=== PATIENT | male | born 1985 | race Caucasian/White ===

== ENCOUNTER 2019-06-29 13:43 | Emergency (ER) | payer OTHER ==
[~2019-06-29] VITALS: Ht 188 cm; Wt 72.6 kg
[~2019-06-29 13:43] MED LIST: ALBU.083IS IH; ALBU90OI INH; ALBU90OI61 INH; AMOX500 PO; AZIT250 PO; Benadryl 50 mg50 MG PO; CLAR500 PO; DIPH50 PO; LANS30EC PO; Naprosyn500 MG PO; OLAN10 PO; OMEP10ER PO; PRED10 PO; Prednisone20 MG PO; Prozac20 MG PO; QUET200 PO; QVAR7.3 G1 IH; SERT50 PO; Veetids 500500 MG PO
[2019-06-29] MEDS ORDERED: Veetids 500500 MG PO (14:14)
== END 2019-06-29 14:18 | disposition home or self-care (01) ==
LOC: ER 13:43
DX: K04.7 Periapical abscess without sinus (principal); K02.9 Dental caries, unspecified; K04.01 Reversible pulpitis; Z87.891 Personal history of nicotine dependence
CPT/HCPCS: 64400; 99282-25

== ENCOUNTER 2019-12-26 19:46 | Emergency (ER) | payer OTHER ==
[~2019-12-26] VITALS: Ht 188 cm; Wt 68.0 kg
== END 2019-12-26 21:17 | disposition home or self-care (01) ==
LOC: ER 19:46
DX: M79.631 Pain in right forearm (principal); M25.531 Pain in right wrist; J45.909 Unspecified asthma, uncomplicated; Z87.891 Personal history of nicotine dependence; W01.0XXA Fall on same level from slipping, tripping and stumbling without subsequent striking against object, initial encounter
CPT/HCPCS: 29125; 73090; 99283-25

== ENCOUNTER → 2021-10-06 | Outpatient (CLI) | payer OTHER ==
[~2021-10-06] MED LIST changes: +Mucinex600 MG PO
[2021-10-06 15:21] LABS: BASOPHILS ABSOLUTE AUTO 0.03 K/mm3 (0.00-0.23); BASOPHILS PERCENT AUTO 1 % (0-2); EOSINOPHILS ABSOLUTE AUTO 0.18 K/mm3 (0.00-0.68); EOSINOPHILS PERCENT AUTO 3 % (0-6); Hemoglobin 14.3 g/dL (13.5-17.5); IMMATURE GRAN ABSOLUTE AUTO 0.01 K/mm3 (0.00-0.10); IMMATURE GRAN PERCENT AUTO 0 % (0-1); LYMPHOCYTES ABSOLUTE AUTO 2.15 K/mm3 (0.84-5.20); LYMPHOCYTES PERCENT AUTO 37 % (21-46); MONOCYTES ABSOLUTE AUTO 0.43 K/mm3 (0.16-1.47); MONOCYTES PERCENT AUTO 8 % (4-13); Mean Corpuscular HGB 29.7 pg (26.0-34.0); Mean Corpuscular HGB Conc 34.9 g/dL (31.5-36.5); Mean Corpuscular Volume 85 fL (80-100); Mean Platelet Volume 9.7 fL (9.1-12.4); NEUTROPHILS ABSOLUTE AUTO 2.97 K/mm3 (1.96-9.15); NEUTROPHILS PERCENT AUTO 51 % (41-73); Platelet Count 315 K/mm3 (150-400); RDW Coefficient Variation 12.8 % (11.7-14.2); RDW Standard Deviation 39.9 fL (35.1-46.3); Red Blood Cell Count 4.81 M/mm3 (4.30-5.90); White Blood Cell Count 5.77 K/mm3 (4.00-11.30)
[2021-10-06 15:36] LABS: Alanine Aminotransfer (ALT/SGP 47 U/L (12-78); Albumin, Blood 4.3 g/dL (3.4-5.0); Albumin/Globulin Ratio 1.5 (0.8-1.8); Alk Phos 60 U/L (40-126); Amylase, Blood 87 U/L (25-115); Anion Gap 11 mmol/L (6-16); Aspartate Aminotrans (AST/SGOT 40 U/L (12-37); Bilirubin, Total 0.6 mg/dL (0.1-1.0); Blood Urea Nitrogen 19 mg/dL (8-24); Bun/Creatinine Ratio 20.9 (12.0-20.0); CO2, Blood 30 mmol/L (21-32); Calcium, Blood 9.2 mg/dL (8.5-10.1); Chloride, Blood 104 mmol/L (98-108); Creatinine, Blood 0.91 mg/dL (0.60-1.20); Globulin, Blood 2.8 g/dL (2.2-4.0); Glomerular Filtration Rate >60 (60-); Glucose, Blood 83 mg/dL (70-99); Potassium, Blood 3.9 mmol/L (3.5-5.5); Sodium, Blood 145 mmol/L (136-145); Total Protein, Blood 7.1 g/dL (6.4-8.2)
[2021-10-06 15:58] LABS: International Normalized Ratio 0.93; Prothrombin Time Results 9.8 Sec (9.7-11.5)
== END | disposition home or self-care (01) ==
LOC: LAB SHORT 15:15
PROVIDERS: General Practice
DX: U07.1 COVID-19 (principal); R04.2 Hemoptysis
CPT/HCPCS: 80053; 82150; 85025; 85610; 85730; 87070

== ENCOUNTER 2023-08-27 06:39 | Emergency (ER) | payer OTHER ==
[~2023-08-27] VITALS: Ht 188 cm; Wt 70.3 kg
[2023-08-27 07:53] VITALS: BP 142/87
[2023-08-27] MEDS ORDERED: CEPH500 PO (08:10)
[2023-08-27] MEDS ORDERED: SULTRIDS PO (08:10)
[2023-08-27] MEDS ORDERED: ONDA4 PO (08:11)
[2023-08-27] MEDS ORDERED: ALBU90OI INH (09:40)
== END 2023-08-27 09:49 | disposition home or self-care (01) ==
LOC: ER 06:39
DX: L03.011 Cellulitis of right finger (principal); M79.89 Other specified soft tissue disorders; J45.909 Unspecified asthma, uncomplicated; Z79.899 Other long term (current) drug therapy; Z87.891 Personal history of nicotine dependence
CPT/HCPCS: 73140; 80053; 85025; 96365; 96375; 99283-25; A9270; J0690; J1885; J7030

== ENCOUNTER 2023-08-30 13:23 | Inpatient (IN) | payer OTHER ==
[~2023-08-30] VITALS: Ht 188 cm; Wt 63.3 kg
[~2023-08-30 13:23] MED LIST changes: +CEPH500 PO; +ONDA4 PO; +SULTRIDS PO
[2023-08-30 14:11] LABS: BASOPHILS ABSOLUTE AUTO 0.04 K/mm3 (0.00-0.23); BASOPHILS PERCENT AUTO 0 % (0-2); EOSINOPHILS ABSOLUTE AUTO 0.11 K/mm3 (0.00-0.68); EOSINOPHILS PERCENT AUTO 1 % (0-6); Hematocrit 40.4 % (37.0-53.0); Hemoglobin 14.1 g/dL (13.5-17.5); IMMATURE GRAN PERCENT AUTO 1 % (0-1); LYMPHOCYTES ABSOLUTE AUTO 1.96 K/mm3 (0.84-5.20); LYMPHOCYTES PERCENT AUTO 16 % (21-46); MONOCYTES ABSOLUTE AUTO 1.04 K/mm3 (0.16-1.47); MONOCYTES PERCENT AUTO 8 % (4-13); Mean Corpuscular HGB 29.6 pg (26.0-34.0); Mean Corpuscular HGB Conc 34.9 g/dL (31.5-36.5); Mean Corpuscular Volume 85 fL (80-100); Mean Platelet Volume 9.6 fL (9.1-12.4); NEUTROPHILS ABSOLUTE AUTO 9.19 K/mm3 (1.96-9.15); NEUTROPHILS PERCENT AUTO 74 % (41-73); Platelet Count 365 K/mm3 (150-400); RDW Coefficient Variation 13.3 % (11.7-14.2); RDW Standard Deviation 41.8 fL (35.1-46.3); Red Blood Cell Count 4.76 M/mm3 (4.30-5.90); White Blood Cell Count 12.44 K/mm3 (4.00-11.30)
[2023-08-30 16:10] LABS: Albumin, Blood 3.1 g/dL (3.4-5.0); Albumin/Globulin Ratio 0.7 (0.8-1.8); Bilirubin, Total 0.1 mg/dL (0.1-1.0); Bun/Creatinine Ratio 12.8 (12.0-20.0); Calcium, Blood 9.1 mg/dL (8.5-10.1); Creatinine, Blood 0.86 mg/dL (0.60-1.20); Globulin, Blood 4.5 g/dL (2.2-4.0); Potassium, Blood 4.3 mmol/L (3.5-5.5); Total Protein, Blood 7.6 g/dL (6.4-8.2)
[2023-08-30 22:11] VITALS: BP 127/76
--- NOTE | 2023-08-30 22:28 | NUR ---
ADMIT NOTE LATE ENTRY PT TRANSPORTED BY WHEELCHAIR TO UNIT, AMBULATED FROM WHEELCHAIR TO BED UNASSISTED. PT EDUCATED ON FIRE SAFETY AND PREVENTION. ORIENTED TO CALL LIGHT AND ROOM. BED IN LOWEST POSITION WITH CALL LIGHT WITHIN REACH. PT KNOWS HOW TO CALL FOR NEEDS. RECEIVED REPORT FROM ED RN KAMERON. WILL CONTINUE TO MONITOR.
--- NOTE | 2023-08-31 03:55 | NUR ---
SHIFT SUMMARY PT A&O X4, CALM AND COOPERATIVE WITH CARE. PT IN SEVERE PAIN AFTER ARRIVAL TO UNIT. DR WALDRON AT BEDSIDE AND PLACED ORDERS. MEDICATED FOR PAIN PER EMAR. ABX GIVEN. NS INFUISING @ 125 ML/HR. PT INDEPENDENT IN ROOM. PT KEPT NPO AT MIDNIGHT AWAITING ORTHOPEDIC EVALUATION. BED KEPT IN LOWEST POSITION WITH CALL LIGHT WITHIN REACH. CALLS APPROPRAITELY FOR NEEDS.
[2023-08-31 04:55] VITALS: BP 118/67
[2023-08-31 05:07] LABS: BASOPHILS ABSOLUTE AUTO 0.06 K/mm3 (0.00-0.23); BASOPHILS PERCENT AUTO 1 % (0-2); EOSINOPHILS PERCENT AUTO 2 % (0-6); Hematocrit 38.3 % (37.0-53.0); Hemoglobin 12.9 g/dL (13.5-17.5); IMMATURE GRAN ABSOLUTE AUTO 0.06 K/mm3 (0.00-0.10); IMMATURE GRAN PERCENT AUTO 1 % (0-1); LYMPHOCYTES ABSOLUTE AUTO 2.03 K/mm3 (0.84-5.20); LYMPHOCYTES PERCENT AUTO 16 % (21-46); MONOCYTES ABSOLUTE AUTO 1.15 K/mm3 (0.16-1.47); MONOCYTES PERCENT AUTO 9 % (4-13); Mean Corpuscular HGB 28.9 pg (26.0-34.0); Mean Corpuscular HGB Conc 33.7 g/dL (31.5-36.5); Mean Corpuscular Volume 86 fL (80-100); Mean Platelet Volume 9.6 fL (9.1-12.4); NEUTROPHILS ABSOLUTE AUTO 9.02 K/mm3 (1.96-9.15); NEUTROPHILS PERCENT AUTO 71 % (41-73); Platelet Count 345 K/mm3 (150-400); RDW Coefficient Variation 13.3 % (11.7-14.2); Red Blood Cell Count 4.47 M/mm3 (4.30-5.90); White Blood Cell Count 12.62 K/mm3 (4.00-11.30)
[2023-08-31 07:53] VITALS: BP 131/81
[2023-08-31 16:47] VITALS: BP 130/76
[2023-08-31 19:26] VITALS: BP 133/85
--- NOTE | 2023-08-31 19:46 | NUR ---
SHIFT SUMMARY PATIENT WITH PAIN THROUGHOUT SHIFT, MEDICATED PER EMAR. REDNESS AND SWELLING MARKED AT BEGINNING OF SHIFT, PATIENT REPORTS SOME INCREASE IN SWELLING TOWARD END OF SHIFT BUT NO ADDITIONAL REDNESS NOTED. DENIES NUMBNESS OR TINGLING. PATIENT UP TO BATHROOM AD LOGAN. BED IN LOW POSITION. CALL LIGHT IN REACH. PATIENT CALLS APPROPRIATELY BUT DOES NOT CALL FOR PAIN MEDS. HE EXPRESSES CONCERN OF TAKING SO MUCH PAIN MEDS, STATES THIS IS NOT NORMAL FOR HIM.
[2023-09-01] VITALS (15 sets, daily range): BP systolic 120–160; BP diastolic 77–94
[2023-09-01 05:04] LABS: BASOPHILS ABSOLUTE AUTO 0.03 K/mm3 (0.00-0.23); BASOPHILS PERCENT AUTO 0 % (0-2); EOSINOPHILS ABSOLUTE AUTO 0.38 K/mm3 (0.00-0.68); EOSINOPHILS PERCENT AUTO 6 % (0-6); Hematocrit 35.9 % (37.0-53.0); Hemoglobin 12.3 g/dL (13.5-17.5); IMMATURE GRAN ABSOLUTE AUTO 0.04 K/mm3 (0.00-0.10); IMMATURE GRAN PERCENT AUTO 1 % (0-1); LYMPHOCYTES ABSOLUTE AUTO 1.97 K/mm3 (0.84-5.20); LYMPHOCYTES PERCENT AUTO 29 % (21-46); MONOCYTES ABSOLUTE AUTO 0.72 K/mm3 (0.16-1.47); MONOCYTES PERCENT AUTO 11 % (4-13); Mean Corpuscular HGB 29.3 pg (26.0-34.0); Mean Corpuscular HGB Conc 34.3 g/dL (31.5-36.5); Mean Corpuscular Volume 86 fL (80-100); Mean Platelet Volume 9.4 fL (9.1-12.4); NEUTROPHILS ABSOLUTE AUTO 3.61 K/mm3 (1.96-9.15); NEUTROPHILS PERCENT AUTO 54 % (41-73); Platelet Count 324 K/mm3 (150-400); RDW Coefficient Variation 13.3 % (11.7-14.2); RDW Standard Deviation 41.5 fL (35.1-46.3); White Blood Cell Count 6.75 K/mm3 (4.00-11.30)
[2023-09-01 05:54] LABS: Albumin, Blood 2.6 g/dL (3.4-5.0); Albumin/Globulin Ratio 0.7 (0.8-1.8); Bilirubin, Total 0.2 mg/dL (0.1-1.0); Bun/Creatinine Ratio 13.1 (12.0-20.0); Calcium, Blood 8.4 mg/dL (8.5-10.1); Globulin, Blood 3.9 g/dL (2.2-4.0); Potassium, Blood 4.5 mmol/L (3.5-5.5); Total Protein, Blood 6.5 g/dL (6.4-8.2)
--- NOTE | 2023-09-01 07:55 | NUR ---
END OF SHIFT SUMMARY NO EVENTS OVERNIGHT. PT CALM AND COOPERATIVE WITH CARE PROVIDED. PT A&O x4, VSS, AFEBRILE. PT MANAGED WITH PRN MEDICATION TO KEEP PT COMFORTABLE. R HAND ELEVATED ON PILLOW. SMALL AMOUNT OF SEROSANGUINOUS FLUID NOTED TO PEDRO PAD. DISPOSABLE PEDRO PAD CHANGED FREQUENTLY TO KEEP R HAND CLEAN AND DRY. PT SLEPT ON AND OFF THROUGHOUT THE SHIFT. PT SCHEDULED TO HAVE I&D THIS AFTERNOON AT 1500. PT COMPLIANT WITH NPO ORDER. PT ABLE TO MAKE NEEDS KNOWN. CALL LIGHT WITHIN REACH, WCTM.
--- NOTE | 2023-09-01 15:22 | NUR ---
Patient up to Ambulate independently. Gait steady. History, Chart, Medications and Allergies reviewed before start of procedure.Lungs clear T/O to Auscultation. Patient confirms NPO status and agrees with scheduled surgery. Pre-Op teaching done. Pt verbalizes understanding.
--- NOTE | 2023-09-01 19:31 | NUR ---
SHIFT SUMMARY PT A&O4 AND PLEASANT. PT C/O PAIN T/O DAY IN RIGHT HAND. ELEVATED ON PILLOWS AND MEDICATED PER EMAR. PT WENT FOR I&D AND WASHOUT AT ABOUT 1500. PT ARRIVED BACK ON THE MEDICAL FLOOR AT ABOUT 1730. PT C/O OF SEVERE PAIN WITH LITTLE RELIEF FROM MEDICATION IN PACU. PT AGAIN MEDICATED PER EMAR ONCE BACK ON MEDICAL FLOOR. PT ABLE TO TOLERATE SOME ICE CREAM. VSS. FAMILY AT BEDSIDE. BED IN LOWEST POSITION AND CALL LIGHT IN REACH.
[2023-09-02 00:29] VITALS: BP 125/85
[2023-09-02 04:31] VITALS: BP 137/88
[2023-09-02 05:00] LABS: BASOPHILS ABSOLUTE AUTO 0.03 K/mm3 (0.00-0.23); BASOPHILS PERCENT AUTO 0 % (0-2); EOSINOPHILS ABSOLUTE AUTO 0.42 K/mm3 (0.00-0.68); EOSINOPHILS PERCENT AUTO 6 % (0-6); Hematocrit 33.3 % (37.0-53.0); Hemoglobin 11.2 g/dL (13.5-17.5); IMMATURE GRAN ABSOLUTE AUTO 0.02 K/mm3 (0.00-0.10); IMMATURE GRAN PERCENT AUTO 0 % (0-1); LYMPHOCYTES ABSOLUTE AUTO 2.17 K/mm3 (0.84-5.20); LYMPHOCYTES PERCENT AUTO 32 % (21-46); MONOCYTES ABSOLUTE AUTO 0.51 K/mm3 (0.16-1.47); MONOCYTES PERCENT AUTO 8 % (4-13); Mean Corpuscular HGB 28.9 pg (26.0-34.0); Mean Corpuscular HGB Conc 33.6 g/dL (31.5-36.5); Mean Corpuscular Volume 86 fL (80-100); Mean Platelet Volume 9.5 fL (9.1-12.4); NEUTROPHILS ABSOLUTE AUTO 3.63 K/mm3 (1.96-9.15); NEUTROPHILS PERCENT AUTO 54 % (41-73); Platelet Count 337 K/mm3 (150-400); RDW Coefficient Variation 13.1 % (11.7-14.2); RDW Standard Deviation 41.1 fL (35.1-46.3); Red Blood Cell Count 3.87 M/mm3 (4.30-5.90); White Blood Cell Count 6.78 K/mm3 (4.00-11.30)
[2023-09-02 05:35] LABS: Albumin, Blood 2.4 g/dL (3.4-5.0); Albumin/Globulin Ratio 0.7 (0.8-1.8); Bilirubin, Total 0.1 mg/dL (0.1-1.0); Bun/Creatinine Ratio 12.1 (12.0-20.0); Calcium, Blood 7.9 mg/dL (8.5-10.1); Creatinine, Blood 0.91 mg/dL (0.60-1.20); Globulin, Blood 3.6 g/dL (2.2-4.0); Potassium, Blood 4.2 mmol/L (3.5-5.5)
--- NOTE | 2023-09-02 07:46 | NUR ---
SHIFT SUMMARY. I&D TO RIGHT HAND ON 09/01. PAIN REGIMEN PER EMAR. A/OX4. ROOM AIR. SCD'S BILAT LE. INFUSION NS @ 125 ML/HR. CICULATION DISTAL TO SURGERY SITE INTACT. CONTINENET B/B. ABLE TO MAKE NEEDS KNOWN. CALL LIGHT IN REACH. BED LOCKED IN LOW POSITION. PT HESITANT TO PRESS CALL LIGHT, NOTICED PT WILL NOT ALWAYS CALL FOR PAIN CONTROL UNTIL HIS PAIN IS 10/10. TRIED TO STAY ON TOP OF PAIN REGIMEN BY ASKING PATIENT IF HE WOULD LIKE HIS PAIN MEDICINE BEFORE IT GOT TO THAT 10/10 POINT.
[2023-09-02 07:56] VITALS: BP 127/84
[2023-09-02 16:16] VITALS: BP 136/83
--- NOTE | 2023-09-02 17:09 | NUR ---
SHIFT SUMMARY MR KU HAS BEEN UP TO THE CHAIR FOR MUCH OF THE SHIFT. KEEPING R HAND ELEVATEED ON SEVERAL PILLOWS. GOOD C.S.M. TO FINGERS OF RIGHT HAND. PAIN CONTROLLED WITH MEDICATIONS. GOOD PO INTAKE. IVF DISCONTINUED. AMBULATING WITH STEADY GAIT. HIS FAMILY VISITED HIM TODAY. BED LOW, CALL LIGHT IN REACH.
[2023-09-02 19:35] VITALS: BP 139/84
[2023-09-03 04:20] VITALS: BP 122/86
--- NOTE | 2023-09-03 05:30 | NUR ---
END OF SHIFT SUMMARY PT A&O x4, VSS, AFEBRILE. PT POLITE AND COOPERATIVE WITH CARE PROVIDED. PT UP AD LOGAN IN ROOM, INDEPENDENT WITH ADL's. PT C/O PAIN TO R HAND. PAIN MANAGED WITH PRN OXY AND APAP WHICH WAS EFFECTIVE. PT SLEPT FOR THE MAJORITY OF THE SHIFT OVERNIGHT. DRESSING TO R HAND WAS CHANGED YESTERDAY. PT ENCOURAGED TO MAKE NEEDS KNOWN. CALL LIGHT WITHIN REACH, WCTM.
[2023-09-03 07:28] VITALS: BP 130/77
[2023-09-03 16:00] VITALS: BP 136/85
--- NOTE | 2023-09-03 17:12 | NUR ---
DISCHARGE A&OX4, COOPERATIVE WITH CARE, PLEASANT. MEDICATED FOR PAIN TO R HAND WOUND T/O SHIFT. DENIED CP/PRESSURE, SOB, DIZZINESS, OR HEADACHE. NO OTHER COMPLAINTS. NO ACUTE EVENTS THIS SHIFT. IV REMOVED. DISCHARGE PACKET REVIEWED WITH PATIENT. EDUCATED PATIENT ABOUT WOUND CARE AND NUTRITION. PATIENT AND VERBALIZED UNDERSTANDING. PATIENT DISCHARGED AT 1700.
[2023-09-04] MEDS ORDERED: OXYC5 PO (15:18)
== END 2023-09-03 17:14 | disposition home or self-care (01) | DRG 872 ==
LOC: ER 13:23 → MEDS 13:24
PROVIDERS: Physician Assistant; Student in an Organized Health Care Education/Training Program; ADMIT Student in an Organized Health Care Education/Training Program
PROC: 0J9J0ZX Drainage of Right Hand Subcutaneous Tissue and Fascia, Open Approach, Diagnostic (ICD-10-PCS; 2023-09-01)
PROC: 3E03329 Introduction of Other Anti-infective into Peripheral Vein, Percutaneous Approach (ICD-10-PCS; principal; 2023-09-02)
DX: A41.02 Sepsis due to Methicillin resistant Staphylococcus aureus (principal); L02.511 Cutaneous abscess of right hand; J45.909 Unspecified asthma, uncomplicated; Z87.891 Personal history of nicotine dependence; L03.011 Cellulitis of right finger; F12.90 Cannabis use, unspecified, uncomplicated; Z79.899 Other long term (current) drug therapy
CPT/HCPCS: 26011; 36415; 73140; 73201; 80053; 85025; 87040; 87070; 87071; 87075; 87077; 87147; 87186; 87205; 90471; 90714; 96365; 96375; 96376; 99285-25; A9270; G0378; J0690; J1170; J1885; J2250; J2270; J2405; J2704; J3010; J3370; J7030; J7050; J7120; Q9967

== ENCOUNTER 2023-09-04 10:10 | Emergency (ER) | payer OTHER ==
[~2023-09-04] VITALS: Ht 188 cm; Wt 70.3 kg
[2023-09-04 12:29] LABS: BASOPHILS ABSOLUTE AUTO 0.04 K/mm3 (0.00-0.23); BASOPHILS PERCENT AUTO 0 % (0-2); EOSINOPHILS ABSOLUTE AUTO 0.07 K/mm3 (0.00-0.68); EOSINOPHILS PERCENT AUTO 0 % (0-6); Hematocrit 40.6 % (37.0-53.0); Hemoglobin 14.2 g/dL (13.5-17.5); IMMATURE GRAN ABSOLUTE AUTO 0.09 K/mm3 (0.00-0.10); IMMATURE GRAN PERCENT AUTO 1 % (0-1); LYMPHOCYTES ABSOLUTE AUTO 1.25 K/mm3 (0.84-5.20); LYMPHOCYTES PERCENT AUTO 8 % (21-46); MONOCYTES PERCENT AUTO 3 % (4-13); Mean Corpuscular HGB 29.6 pg (26.0-34.0); Mean Corpuscular Volume 85 fL (80-100); Mean Platelet Volume 9.1 fL (9.1-12.4); NEUTROPHILS ABSOLUTE AUTO 14.08 K/mm3 (1.96-9.15); NEUTROPHILS PERCENT AUTO 88 % (41-73); Platelet Count 476 K/mm3 (150-400); RDW Standard Deviation 40.6 fL (35.1-46.3); Red Blood Cell Count 4.79 M/mm3 (4.30-5.90); White Blood Cell Count 15.93 K/mm3 (4.00-11.30)
[2023-09-04 13:18] LABS: Albumin, Blood 3.5 g/dL (3.4-5.0); Albumin/Globulin Ratio 0.7 (0.8-1.8); Bilirubin, Total 0.1 mg/dL (0.1-1.0); Bun/Creatinine Ratio 12.1 (12.0-20.0); Calcium, Blood 9.4 mg/dL (8.5-10.1); Creatinine, Blood 0.99 mg/dL (0.60-1.20); Globulin, Blood 4.7 g/dL (2.2-4.0); Potassium, Blood 4.7 mmol/L (3.5-5.5); Total Protein, Blood 8.2 g/dL (6.4-8.2)
[2023-09-04 13:23] VITALS: BP 136/87
[2023-09-04] MEDS ORDERED: OXYC5 PO (15:18)
== END 2023-09-04 16:05 | disposition home or self-care (01) ==
LOC: ER 10:10
PROVIDERS: Student in an Organized Health Care Education/Training Program
DX: S61.031A Puncture wound without foreign body of right thumb without damage to nail, initial encounter (principal); R52 Pain, unspecified; X58.XXXA Exposure to other specified factors, initial encounter; Z87.891 Personal history of nicotine dependence
CPT/HCPCS: 80053; 85025; 99283; A9270